=== PATIENT | male | born 1950 | race Native Hawaiian/Other Pacific Islander ===

== ENCOUNTER 2021-12-02 14:59 | Emergency (ER) | payer OTHER, BC ==
[~2021-12-02] VITALS: Ht 180.3 cm; Wt 87.1 kg
[~2021-12-02 14:59] MED LIST: ACET-206 PO; ATOR20TA2 PO; CEFT1INJ27 INJ; CELECOXIB200 MG PO; CHOL100034 PO; ESCI10TA PO; ESCITALOPRAM20 MG PO; HALO5INJ3 IM; HYDR25TA60 PO; INSU100P SC; KLOR-CON M2020 MEQ PO; LISI5TAB10 PO; LORA0.5T17 PO; MAGNESIUM SULF IV; MAGNSUS68 PO; METF500T PO; OLANZAPINE5 MG PO; POTA10CA3 PO; POTA10IN2 IV; POTASSIUM CHL PO; POTASSIUM CHLORIDE 60 MEQ IV; POTASSIUM CHLORIDE PO; QUET25TA2 PO; RISP2TAB2 PO; ROSUVASTATIN CA10 MG PO; SODIUM CHLORIDE IV; [UNRECOGNIZED DRUG - CODE] IV; [UNRECOGNIZED DRUG - MIXTURE] IV
[2021-12-02 15:15] VITALS: BP 93/64; TEMP 98
[2021-12-02 15:36] LABS: PLATELET COUNT 322 K/uL (142-355)
[2021-12-02] MEDS ORDERED: SEROQUEL25 MG PO (15:59)
[2021-12-02] MEDS ORDERED: LORA0.5T17 PO (17:28)
[2021-12-02] MEDS ORDERED: HYDR25TA60 PO (17:29)
[2021-12-02] MEDS ORDERED: IBU800 MG PO (17:35)
[2021-12-02] MEDS ORDERED: CLON1TAB18 PO (17:37)
[2021-12-02] MEDS ORDERED: RISP2TAB2 PO (17:38)
[2021-12-02] MEDS ORDERED: MONTELUKAST SOD10 MG PO (17:38)
== END 2021-12-02 16:19 | disposition still patient (30) ==
LOC: ED 14:59
PROVIDERS: Emergency Medicine Emergency Medical Services
DX: F03.91 Unspecified dementia, unspecified severity, with behavioral disturbance (principal); Z11.52 Encounter for screening for COVID-19
CPT/HCPCS: 80053; 80143; 80179; 80320; 85027; 87635; 93005; 99283; U0003

== ENCOUNTER 2021-12-25 12:20 | Emergency (ER) | payer OTHER, BC ==
[~2021-12-25] VITALS: Ht 180.3 cm; Wt 80.7 kg
[~2021-12-25 12:20] MED LIST changes: +CELE100C2 PO; +CLON1TAB18 PO; +IBU800 MG PO; +LORA1TAB17 PO; +MONT10TA PO; +MONTELUKAST SOD10 MG PO; +SEROQUEL25 MG PO
[2021-12-25 12:32] VITALS: BP 123/85; TEMP 97.6
[2021-12-25 13:04] LABS: PLATELET COUNT 336 K/uL (142-355); POTASSIUM 3.7 mmol/L (3.6-5.2)
[2021-12-25] MEDS ORDERED: LEXAPRO10 MG PO (14:59)
[2021-12-25] MEDS ORDERED: LISI5TAB10 PO (15:06)
== END 2021-12-25 15:19 | disposition still patient (30) ==
LOC: ED 12:20
PROVIDERS: Emergency Medicine
DX: R44.1 Visual hallucinations (principal); Z11.52 Encounter for screening for COVID-19; Z04.6 Encounter for general psychiatric examination, requested by authority
CPT/HCPCS: 80053; 85007; 85027; 87635; 93005; 99283; U0003